=== PATIENT | male | born 1995 | race Two or more races ===

== ENCOUNTER 2023-02-17 20:51 | Emergency (ER) | payer BC, OTHER ==
[~2023-02-17] VITALS: Ht 188 cm; Wt 104.5 kg
[2023-02-18] MEDS ORDERED: IBUP-1456 PO (00:28)
[2023-02-18 00:40] VITALS: BP 152/108
== END 2023-02-18 00:56 | disposition home or self-care (01) ==
LOC: ER 20:51
DX: S83.91XA Sprain of unspecified site of right knee, initial encounter (principal); X58.XXXA Exposure to other specified factors, initial encounter; Y93.02 Activity, running; Y92.320 Baseball field as the place of occurrence of the external cause; Y99.8 Other external cause status
CPT/HCPCS: 29505; 73562

== ENCOUNTER 2023-10-14 10:58 | Emergency (ER) | payer BC ==
[~2023-10-14] VITALS: Ht 185.4 cm; Wt 99.9 kg
[~2023-10-14 10:58] MED LIST: IBUP-1456 PO
[2023-10-14 11:00] VITALS: TEMP 97.9
[2023-10-14 11:08] VITALS: BP 148/103; PULSE 77; RESP 17; O2SAT 98
[2023-10-14] MEDS: KETOROLAC TROMETH 30 MG/ML 1ML VIAL IM ONE (16:00)
[2023-10-14] MEDS: LOSARTAN POTASSIUM 50 MG TAB PO ONE (16:00)
[2023-10-14] MEDS ORDERED: CYCL-837 PO (16:06)
== END 2023-10-14 16:10 | disposition home or self-care (01) ==
LOC: ER 10:58
DX: G44.209 Tension-type headache, unspecified, not intractable (principal); I10 Essential (primary) hypertension; Z79.899 Other long term (current) drug therapy
CPT/HCPCS: 96372; 99283; J1885